=== PATIENT | male | born 1980 | race Hispanic/Latino ===

== ENCOUNTER 2022-10-07 17:25 | Emergency (ER) | payer SELFPAY ==
[2022-10-07] MEDS ORDERED: Boostrix 0.5 ML (Tdap) VIAL (>/=7 yrs of age) ONE (19:15)
[2022-10-07] MEDS ORDERED: Lidocaine 1% PF 5 ML VIAL ONE (19:16)
== END 2022-10-07 20:40 | disposition home or self-care (01) ==
LOC: ERS 17:25
DX: S51.812A Laceration without foreign body of left forearm, initial encounter (principal); I10 Essential (primary) hypertension; W23.1XXA Caught, crushed, jammed, or pinched between stationary objects, initial encounter
CPT/HCPCS: 90471; 90715